=== PATIENT | male | born 2000 | race Caucasian/White ===

== ENCOUNTER 2022-08-10 16:36 | Emergency (ER) | payer OTHER, SELFPAY ==
[2022-08-10 16:43] VITALS: BP 138/77; PULSE 77; RESP 20; TEMP 36.8; O2SAT 99; BMI 26.5
[2022-08-10 16:46] VITALS: BP 127/81; PULSE 76; RESP 22; O2SAT 96
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
[2022-08-10] MEDS: iohexol 350 mg/mL 500 mL Btl (per mL) IV (17:25)
[2022-08-10 18:30] VITALS: BP 127/81; PULSE 73; O2SAT 94
== END 2022-08-10 18:31 | disposition home or self-care (01) ==
PROVIDERS: Emergency Provider Student in an Organized Health Care Education/Training Program
DX: S30.1XXA Contusion of abdominal wall, initial encounter (principal); S80.212A Abrasion, left knee, initial encounter; S80.211A Abrasion, right knee, initial encounter; V89.2XXA Person injured in unspecified motor-vehicle accident, traffic, initial encounter
CPT/HCPCS: 12345; 70450; 71045; 72125; 74177; 99285; Q9967